=== PATIENT | male | born 1960 | race Caucasian/White ===

== ENCOUNTER 2020-10-10 05:41 | Day surgery (SDC) | payer OTHER, MEDICAID ==
[2020-10-10] VITALS (11 sets, daily range): BP systolic 106–140; BP diastolic 54–71
[~2020-10-10] VITALS: Ht 172.7 cm; Wt 70.3 kg
[2020-10-10] MEDS ORDERED: SYNTHROID125 MCG ORAL (06:31)
[2020-10-10] MEDS ORDERED: TESTOSTERO200 MG/1 M IM (06:31)
[2020-10-10] MEDS ORDERED: PROZAC20 MG ORAL (06:31)
[2020-10-10] MEDS ORDERED: DESCOVY (06:31)
[2020-10-10] MEDS ORDERED: fentaNYL 100 mcg/2 mL IV ONE (06:37)
[2020-10-10] MEDS ORDERED: Midazolam 2mg/2ml Inj ONE (06:37)
[2020-10-10] MEDS ORDERED: Ketorolac 30mg Inj ONE (06:38)
[2020-10-10] MEDS ORDERED: Lidocaine 1% MPF 10mg/ml 5ml ONE (06:38)
[2020-10-10] MEDS ORDERED: Ropivacaine 5mg/ml Vial 30ml INJ ONE (06:44)
[2020-10-10] MEDS ORDERED: EPINEPHrine 1mg/1ml Amp ONE (06:44)
--- NOTE | 2020-10-10 06:49 | Anethesia Preoperative Eval ---
Anesthesia Pre-op PMH/ROS General Date of Evaluation: Oct 10, 2020 Time of Evaluation: 06:46 Anesthesiologist: Brinda ASA Score: ASA 2 Mallampati Score Class I : Soft palate, uvula, fauces, pillars visible Class II: Soft palate, uvula, fauces visible Class III: Soft palate, base of uvula visible Class IV: Only hard plate visible Mallampati Classification: Class II Surgeon: Jaydon Diagnosis: R knee pain Surgical Procedure: R knee scope Anesthesia History: none Family History: no anesthesia problems Allergies: Coded Allergies: No Known Allergies (Unverified , 10/10/20) Medications: see eMAR Patient NPO?: Yes Past Medical History Cardiovascular: Reports: HTN - borderline; Denies: CAD, MT, valve dz, arrhythmia, other Pulmonary: Denies: asthma, COPD, LEANDRO, other Gastrointestinal/Genitourinary: Reports: GERD; Denies: CRI, ESRD, other Neurologic/Psychiatric: Reports: depression/anxiety; Denies: dementia, CVA, TIA, other Endocrine: Reports: hypothyroidism; Denies: DM, steroids, other HEENT: Denies: cataract (L), cataract (R), glaucoma, [place] (L), [place] (R), other Hematology/Immune: Denies: anemia, DVT, bleeding disorder, other Musculoskeletal/Integumentary: Denies: OA, RA, DJD, DDD, edema, other PMH Narrative: as above PSxH Narrative: ACL repair Left Anesthesia Pre-op Phys. Exam Physician Exam Last Vital Signs Date Time Temp Pulse Resp B/P (MAP) Pulse Ox O2 Delivery O2 Flow Rate FiO2 10/10/20 06:24 97.0 51 20 140/71 98 Room Air Constitutional: NAD Neurologic: CN 2-12 intact Cardiovascular: RRR, no M/R/G Respiratory: CTA Gastrointestinal: S/NT/ND Airway Exam Mallampati Score: Class II MO: full Neck: flexible ROM: full Teeth: intact Dentures: no upper, no lower Anesthesia Pre-op A/P Labs see chart Studies Pre-op Studies: EKG - SR Risk Assessment & Plan Assessment: ASA 2 Plan: GA with LMA Status Change Before Surgery: No Pre-Antibiotics Drug: Ancef 1gr. Given Within 1 Hr of Incision: Yes Time Given: 07:25 Dimitri Douglas MD Oct 10, 2020 06:49
--- NOTE | 2020-10-10 06:55 | Pre-Procedure Note/Attestation ---
Pre-Procedure Note/Attestation Complete Prior to Procedure Planned Procedure: right Procedure Narrative: right knee arthroscopy with partial menisecomy Indications for Procedure Pre-Operative Diagnosis: Right knee meniscus tear Attestation I attest that I discussed the nature of the procedure; its benefits; risks and complications; and alternatives (and the risks and benefits of such alte rnatives), prior to the procedure, with the patient (or the patient's legal volunteer patient representative). I attest that, if there was a reasonable possibility of needing a blood transfusion, the patient (or the patient's legal volunteer patient representative) was given the [facility] standardized written summary, pursuant to the Rolando Melissa Blood Safety Act ([place] Health and Safety Code # 1645, as amended). I attest that I re-evaluated the patient just prior to the surgery and that there has been no change in the patient's H&P, except as documented below: Regan Interiano MD Oct 10, 2020 06:55
[2020-10-10] MEDS ORDERED: ePHEDrine 50mg/ml Inj ONE (07:00)
[2020-10-10] MEDS ORDERED: LR 1000ml 1,000 ML IVLG SCH (07:00)
[2020-10-10] MEDS ORDERED: HYDROcodone/Acetamin 5/325 tab ORAL PRN (07:00)
[2020-10-10] MEDS ORDERED: Meperidine 25mg/1ml Inj (FOR RIGORS ONLY) IV PRN (07:00)
[2020-10-10] MEDS ORDERED: LR 1000ml ONE (07:00)
[2020-10-10] MEDS ORDERED: DiphenhydrAMINE 50mg/ml Inj IVP PRN (07:00)
[2020-10-10] MEDS ORDERED: Tylenol #3 tab (300mg/30mg) ORAL PRN (07:00)
[2020-10-10] MEDS ORDERED: D5 1/2NS 1,000 ML IV SCH (07:00)
[2020-10-10] MEDS ORDERED: HYDROmorphone 1mg/ml Carpuject SUBQ PRN (07:00)
[2020-10-10] MEDS ORDERED: NS Irrig 3000ml IRRIG ONE (07:00)
--- NOTE | 2020-10-10 08:08 | Brief Operative Note ---
Immediate Post Operative Note Operative Note Pre-op Diagnosis: Right knee meniscus tear Procedure: Right knee arthroscopy with partial menisectomy Post-op Diagnosis: same as pre-op Findings: consistent w/pre-op dx studies Surgeon: Jaydon Anesthesia: general, local Specimen: yes Complications: none Condition: stable Fluids: 100 ml Estimated Blood Loss: none Drains: none Implant(s) used?: No Regan Interiano MD Oct 10, 2020 08:07
--- NOTE | 2020-10-10 08:08 | Immediate Post-Op Evaluation ---
Immediate Post-Op Evalulation Immediate Post-Op Evalulation Procedure: R knee arthroscopy meniscectomy Date of Evaluation: Oct 10, 2020 Time of Evaluation: 08:07 IV Fluids: 800 Blood Products: none Estimated Blood Loss: min Urinary Output: none Blood Pressure Systolic: 116 Blood Pressure Diastolic: 56 Pulse Rate: 64 Respiratory Rate: 18 O2 Sat by Pulse Oximetry: 99 Temperature (Fahrenheit): 97.6 Pain Score (1-10): 1 Nausea: No Vomiting: No Complications none Patient Status: reacts, patent, none Hydration Status: adequate Dimitri Douglas MD Oct 10, 2020 08:08
--- NOTE | 2020-10-10 10:15 | Operative Note - Dictated ---
DATE OF OPERATION: 10/10/2020 SURGEON: Regan Interiano M.D. PAPER SALES REPRESENTATIVE: None. ANESTHESIA: General plus regional. COMPLICATIONS: None. ANTIBIOTICS: Ancef. PREOPERATIVE DIAGNOSIS: Right knee medial meniscus tear. POSTOPERATIVE DIAGNOSIS: Right knee medial meniscus tear. PROCEDURE PERFORMED: Right knee arthroscopy with partial medial meniscectomy. ESTIMATED BLOOD LOSS: Minimal. SPECIMEN SENT: Remnant medial meniscus. BACKGROUND: The patient has had longstanding right knee pain refractory to nonoperative management. MRI confirmed the diagnosis. All risks, benefits, and alternatives to surgical intervention were discussed in great detail. Risks included, but were not limited to, bleeding, infection, neurovascular injury, need for additional surgical intervention, failure of pain relief, arthrofibrosis, complications of anesthesia, blood clots, stroke, heart attack, and potentially . He understood these risks, amongst numerous others, and consent was signed. PROCEDURE IN DETAIL: The patient was brought into the operating room, placed supine on the operating table. The right knee was correctly verified for surgical site and prepped and draped in standard sterile fashion. Exam under anesthesia revealed symmetric range of motion of the contralateral side, no laxity, and no effusion. Anterolateral and anteromedial portals were marked and injected with 20 mL of 0.25% Marcaine with epinephrine. A diagnostic arthroscopy was then undertaken. It revealed the followin. Normal suprapatellar pouch. 2. Normal medial gutter. 3. Normal lateral gutter. 4. Normal lateral compartment. 5. Normal lateral meniscus. 6. Normal ACL. 7. Normal PCL. 8. Normal medial compartment. 9. Macerated complex tear with flap posterior to middle horn medial meniscus. All normal structures were probed and the flap of the medial meniscus was then brought into the joint for transection. Debridement was performed and partial meniscectomy was performed using up biter, left biter, right biter, and 4.5 mm shaver for contouring. The remnant meniscus was tested with a probe and found to be stable. The anterior horn of the medial meniscus was unaffected. All fluid and debris were evacuated from the knee. A 10 mL of Marcaine were injected. The wounds were copiously irrigated and reapproximated using 4-0 Monocryl in subcuticular fashion. Steri-Strips were used over Mastisol. Dry sterile dressing was applied. A compressive stocking was fitted. There were no complications. I attest that I performed the entire operation. He was transferred to recovery in good condition. Regan Interiano M.D. DR: DOMO JOB#: [id number] CC:
--- NOTE | 2020-10-10 10:25 | 48 Hour Post Anesthesia Eval ---
Post Anesthesia Evaluation Procedure: R knee arthroscopy meniscectomy Date of Evaluation: Oct 10, 2020 Time of Evaluation: 09:40 Blood Pressure Systolic: 116 0: 54 Pulse Rate: 68 Respiratory Rate: 18 Temperature (Fahrenheit): 97.6 O2 Sat by Pulse Oximetry: 98 Airway: patent Nausea: No Vomiting: No Pain Intensity: 1 Hydration Status: adequate Cardiopulmonary Status: stable Mental Status/LOC: patient returned to baseline Follow-up Care/Observations: n/a Post-Anesthesia Complications: none Follow-up care needed: ready to discharge Dimitri Douglas MD Oct 10, 2020 10:25
== END 2020-10-10 07:35 | disposition home or self-care (01) ==
LOC: SUR 05:41
DX: S83.231A Complex tear of medial meniscus, current injury, right knee, initial encounter (principal); X58.XXXA Exposure to other specified factors, initial encounter; Y92.9 Unspecified place or not applicable; I10 Essential (primary) hypertension; K21.9 Gastro-esophageal reflux disease without esophagitis; E03.9 Hypothyroidism, unspecified; F32.9 Major depressive disorder, single episode, unspecified; F41.9 Anxiety disorder, unspecified
CPT/HCPCS: 94003; 94150; J2250; U0002